=== PATIENT | female | born 1995 | race Asian ===

== ENCOUNTER 2017-10-12 09:43 | Emergency (ER) | payer MEDICAID ==
[~2017-10-12] VITALS: Ht 162.6 cm; Wt 60.3 kg
[2017-10-12 09:58] VITALS: BP 113/79
--- NOTE | 2017-10-12 09:58 | NUR ---
Patient to bed 06.
--- NOTE | 2017-10-12 10:00 | NUR ---
PT IS 22 Y/O FEMALE C/O THROAT PAIN, BODYACHES, HEADACHE, FEVER, MINOR COUGH X 2 WKS--F/CSEEN BY CLINIC RX AMOXICILLIN 1GM BID--TOOK 3 DAYS BUT DEVELOPED A RASH TO HANDS INSTRUCTED TO STOP MEDICATION---- PT ADDS WAS FEELING BETTER WHILE TAKING RX
[2017-10-12 10:30] VITALS: BP 116/73
--- NOTE | 2017-10-12 10:30 | NUR ---
Patient discharged with v/s stable. Written and verbal after care instructions given and explained. Patient alert, oriented and verbalized understanding of instructions. Ambulatory with steady gait. All questions addressed prior to discharge. ID band removed. Patient advised to follow up with PMD. Rx of PREDNISONE 20MG. NORCO 5MG 325MG given. Patient educated on indication of medication including possible reaction and side effects. Opportunity to ask questions provided and answered.
--- NOTE | 2017-10-12 10:41 | NUR ---
Note edernst in EDM - 10/12/17 at 1042 by SERA Patient discharged with v/s stable. Written and verbal after care instructions given and explained. Patient alert, oriented and verbalized understanding of instructions. Ambulatory with steady gait. All questions addressed prior to discharge. ID band removed. Patient advised to follow up with PMD. Rx of PREDNISONE 20MG. NORCO 5MG 325MG given. Patient educated on indication of medication including possible reaction and side effects. Opportunity to ask questions provided and answered.
== END 2017-10-12 10:30 | disposition home or self-care (01) ==
LOC: MED 09:43
DX: J02.9 Acute pharyngitis, unspecified (principal); R05 Cough; R50.9 Fever, unspecified
CPT/HCPCS: 81002; 81025; 99283